=== PATIENT | female | born 1950 | race Caucasian/White ===

== ENCOUNTER 2023-01-07 07:07 | Inpatient (IN) ==
--- NOTE | 2022-12-11 12:11 | PAT Medication Instructions ---
Medication Instructions Date of Service December 11, 2022 Home Medications acetaminophen 500 mg tablet 500 mg PO Q6H PRN Pain amino acids (Amino Acid capsule) 1 cap PO UD aspirin 81 mg capsule 81 mg PO QAM calcium carbonate 600 mg-vitamin D3 5 mcg (200 unit) tablet 1 tab PO DAILY cholecalciferol (vitamin D3) 125 mcg (5,000 unit) tablet (Vitamin D3) 125 mcg PO QAM lactobacillus combination no.4 3 billion cell capsule (Probiotic) 3,000 mmu cells PO DAILY ASK your surgeon for instructions amino acids (Amino Acid capsule) 1 cap PO UD DO NOT take the morning of surgery calcium carbonate 600 mg-vitamin D3 5 mcg (200 unit) tablet 1 tab PO DAILY cholecalciferol (vitamin D3) 125 mcg (5,000 unit) tablet (Vitamin D3) 125 mcg PO QAM lactobacillus combination no.4 3 billion cell capsule (Probiotic) 3,000 mmu cells PO DAILY Take morning of surgery With a small sip of water, OTHERWISE NOTHING TO EAT OR DRINK AFTER MIDNIGHT: acetaminophen 500 mg tablet 500 mg PO Q6H PRN Pain (if needed) aspirin 81 mg capsule 81 mg PO QAM (unless surgeon directed otherwise) Take evening before surgery acetaminophen 500 mg tablet 500 mg PO Q6H PRN Pain (if needed) Other Notes If you have any questions please call us at [phone] or [phone] or [phone] or [phone]
--- NOTE | 2022-12-17 11:15 | Anesthesiology Consultation ---
Date of Service December 17, 2022 Assessment & Plan (1) Encounter for pre-operative examination: - Infectious disease screening: Per assessment on 12/17/22: No known infectious disease contacts or current infectious disease symptoms. No noted Covid positive test result in past 90 days. - Outpatient joint assessment: Pt currently scheduled for inpatient pathway. If surgeon requests review for outpatient joint pathway, patient is an acceptable candidate for outpatient joint program from anesthesia standpoint pending surgeon's office assessment that patient is motivated, has good support and completes [facility] preop requirements. Chart Review Chart Review: Acceptable Risk for Surgery and Patient seen in Pre Admission Testing Teaching & Discussion Pre-Anesthesia Teaching/Discussion Notes: Instructed NPO after midnight before surgery,except medications with 15 cc of water. Medication instructions pro vided according to the PAT guidelines. History Surgery Operation Date: 01/07/23 07:00 Proposed Procedures p Right Total Hip Arthroplasty - Placido Alicia MD Height/Weight Height: 5 ft 5.5 in Weight: 63.8 kg Allergies Allergy/AdvReac Type Severity Reaction Status Date / Time levofloxacin [From Levaquin] Allergy Unknown Left arm Verified 12/16/22 11:51 numbness Medications Home Medications Medication Instructions Recorded Confirmed Last Taken acetaminophen 500 mg tablet 500 mg PO Q6H PRN Pain 12/11/22 12/11/22 Unknown amino acids (Amino Acid capsule) 1 cap PO UD 12/11/22 12/11/22 Unknown aspirin 81 mg capsule 81 mg PO QAM 12/11/22 12/11/22 Unknown calcium carbonate 600 mg-vitamin 1 tab PO DAILY 12/11/22 12/11/22 Unknown D3 5 mcg (200 unit) tablet cholecalciferol (vitamin D3) 125 125 mcg PO QAM 12/11/22 12/11/22 Unknown mcg (5,000 unit) tablet (Vitamin D3) lactobacillus combination no.4 3 3,000 mmu cells PO DAILY 12/11/22 12/11/22 Unknown billion cell capsule (Probiotic) Past Medical History Medical History Arthritis of right hip Exercise / Class Metabolic Activity II 4-5 Yardwork/Stairs/Walk up hill (one FS (no CP, no SOB)) Past Surgical History Surgical History Hx of bilateral cataract extraction Hx of colonoscopy Past Anesthesia History No Hx of Anesthesia Complications and No Family Hx of Anesthesia Complications History of PONV No Hx of PONV and Hx of Motion Sickness (Remote hx (carnival rides)) Social History Smoking Status: Never smoker Do You Dip or Chew Tobacco: No Hx Alcohol Use: No Hx Substance Use: No substance use type: does not use Review of Systems Patient denies chest pain, shortness of breath, dyspnea on exertion, fever, chills, cough, wheezing, palpitations. Physical Exam Vital Signs VITALS BP 148/69 P 69 TEMP 98.0 SP02 98%RA RESP 18 PHYSICAL Full cervical extension range of motion. Full TMJ range of motion. TMD 3 finger breaths Mallampati Score 3 Dentition: missing (sides/molars), + crowns (sides) Lungs: clear throughout to auscultation Cardiac: regular rate and rhythm, no murmurs noted Spine: normal Carotid arteries: negative bruit Extremities: no LE edema Lab Results Anesthesia Preop Results Results Anesthesia Widget: WBC 6.15 K/ul (4.8-10.8) 12/17/22 Hgb 12.8 g/dl (12.0-16.0) 12/17/22 Hct 39.3 % (37.0-47.0) 12/17/22 Plt 232 K/uL (130-400) 12/17/22 Na 138 mmol/L (136-145) 12/17/22 K 4.5 mmol/L (3.5-5.1) 12/17/22 Cl 107 mmol/L (98-107) 12/17/22 CO2 28 mmol/L (21-32) 12/17/22 BUN 17 mg/dl (6-23) 12/17/22 Creat 0.88 mg/dl (0.6-1.2) 12/17/22 Glucose Level 98 mg/dl (70-99(Fasting)) 12/17/22 PT 11.5 Seconds (9.0-12.0) 12/17/22 PTT 26.5 Seconds (21.0-31.0) 12/17/22 INR 1.1 (0.9-1.1) 12/17/22 TSH 1.622 uIu/ml (0.300-4.500) 12/17/22 Blood Type B Positive 12/17/22 Antibody Screen NEGATIVE 12/17/22 Testing Electrocardiogram Date: 12/17/22 NSR at 66bpm. Chest X-Ray Date: 12/17/22 FINDINGS: There is mild lung hyperinflation. Lungs are clear. There is no pneumothorax or pleural effusion. Cardiac size is normal. Mediastinal contours are normal. There is no evidence for pulmonary edema. IMPRESSION: No acute cardiopulmonary findings.
--- NOTE | 2023-01-04 09:11 | History & Physical Report ---
Date of Service January 04, 2023 Assessment & Plan (1) Arthritis of right hip: 72-year-old female with advanced right hip arthritis. It looks inflammatory in nature based on the wear pattern. She has failed conservative treatment like to have her right hip fixed. We will plan on taken to the operating to a right total hip replacement. The risks Mente this procedure explained the patient include but not limited to DVT PE infection neurological and vascular bleeding palm pain limb range of motion test is fairly her symptoms incomplete relief of symptoms need for further surgery in the future dislocation etc. The patient understands and desires to proceed informed consent is obtained. We will plan on using a cry stem but is possible we may put a cemented stem in due to her bone structure. What to see what is like at the time of implantation. She is hoping to be discharged home using [facility] program. She does have a history of a DVT in the past with a negative clotting work-up. Will use Xarelto for DVT prophylaxis for 30 days. History of Present Illness Chief Complaint: . Right hip pain. Primary Care Provider: Tameka Correa . Patient is a 72-year-old female from [place] who presents primarily for surgical treatment of her right hip. She has a several year history of increasing right hip pain discomfort describes gotten worse over time. Describes lateral pain groin pain pain rating down to her thigh and into her knee but no further. She been through therapy which did not help at all. She takes Motrin which seemed to help a little bit. 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 She had a negative work- up and was taken off. She has difficulty putting her shoes and socks on. Pains become more unbearable. She like to have this fixed. Allergies Allergy/AdvReac Type Severity Reaction Status Date / Time levofloxacin [From Levaquin] Allergy Unknown Left arm Verified 12/16/22 11:51 numbness Home Medications Medication Instructions Recorded Confirmed Type acetaminophen 500 mg tablet 500 mg PO Q6H PRN Pain 12/11/22 12/11/22 History amino acids (Amino Acid capsule) 1 cap PO UD 12/11/22 12/11/22 History aspirin 81 mg capsule 81 mg PO QAM 12/11/22 12/11/22 History calcium carbonate 600 mg-vitamin 1 tab PO DAILY 12/11/22 12/11/22 History D3 5 mcg (200 unit) tablet cholecalciferol (vitamin D3) 125 125 mcg PO QAM 12/11/22 12/11/22 History mcg (5,000 unit) tablet (Vitamin D3) lactobacillus combination no.4 3 3,000 mmu cells PO DAILY 12/11/22 12/11/22 History billion cell capsule (Probiotic) Past Med/Surg History Medical History Arthritis of right hip Surgical History Hx of bilateral cataract extraction Hx of colonoscopy Social History Smoking Status: Never smoker Second Hand Exposure: Yes (hx growing up); Do You Dip or Chew Tobacco: No; Hx Alcohol Use: No Hx Substance Use: No Preferred Language: Italian Communication Ability: Effective Senior Game Developer Required: No Beliefs That Will Affect Care: None Current Living Situation: Alone Feels Safe at Home: Yes Assistive Devices: Glasses Review of Systems All systems reviewed & are unremarkable except as noted in HPI & below. Physical Exam . Gout examination of the right hip reveal patient walks with a slight bit of a limp. The leg lengths appear pretty equal. She does have tenderness over the lateral aspect of her hip. She does have pain and stiffness with hip motion. She is got limited internal rotation about neutral which recreates pain. Negative straight leg raise. No segment knee effusion. She is neurologically intact. Constitutional WD/WN, vitals as above Neck trachea midline, no thyromegaly Respiratory normal respiratory effort, lungs clear to auscultation Cardiovascular RRR, no murmur, no edema Gastrointestinal (Abdomen) normal bowel sounds, soft, nontender, no hepatosplenomegaly Results & Data Results & Data Laboratory Results . Diagnostic Findings . X-rays of the right hip were reviewed. Shows advanced right hip arthritis. She got fairly concentric disease with protrusio of the femoral head into the a cetabulum. She got cystic changes of the femoral head and acetabulum. Significant osteophytes around the femoral head as well as acetabulum. PG Care Time/CCT Total # of Minutes Spent Total Time Spent with Patient: Total time spent is greater than 50% in coordination of care (as documented) at patient's floor/unit and/or counseling patient: Coding Level of Care Code None Diagnoses Arthritis of right hip M16.11
[~2023-01-07 07:07] MED LIST: ACETAMINOPHEN 500 MG TAB PO SCH; CeleBREX 200 MG CAP PO SCH; FAMOTIDINE 20 MG TAB PO SCH; LR 500ML BOLUS, THEN 15ML/HR IV SCH; LR 60ML/HR IV SCH; METOCLOPRAMIDE HCL 10 MG TABLET PO SCH; ROPIVACAINE 0.5% 5 MG/ML 30 ML VIAL ONE; TRANEXAMIC ACID 1,000 MG **IV Pre-op IV SCH; ceFAZolin 2000MG 2,000 MG/15 ML SYR IV SCH; dexAMETHasone 4 MG TAB PO SCH
[2023-01-07] MEDS ORDERED: ORTHO JOINT ANESTHETIC ONE (07:14)
[2023-01-07] MEDS ORDERED: Nursing to Pharmacy Communication SCH (07:15)
[2023-01-07] MEDS ORDERED: BUPIVACAINE/EPINEPHRINE 0.5% MPF 1:200,000 30 ML VIAL ONE (07:20)
[2023-01-07] MEDS ORDERED: ONDANSETRON INJ 2 MG/ML 2 ML VIAL IV PRN ×2 (07:28→11:41)
[2023-01-07] MEDS ORDERED: HYDROmorphone INJ 1 MG/ML SYRINGE IV PRN (07:28)
[2023-01-07] MEDS ORDERED: ATROPINE SULFATE 0.1 MG/ML 10ML SYR IV PRN (07:28)
[2023-01-07] MEDS ORDERED: ePHEDrine sulfate 50 MG/ML AMP IV PRN (07:28)
[2023-01-07] MEDS ORDERED: fentaNYL citrate PF 100 MCG/2 ML VIAL IV PRN (07:28)
[2023-01-07] MEDS ORDERED: MIDAZOLAM HCL 1 MG/ML 2ML VIAL ONE (07:44)
[2023-01-07] MEDS ORDERED: PROPOFOL IV EMULSION 10 MG/ML 20 ML VIAL IV ONE (07:44)
[2023-01-07] MEDS ORDERED: fentaNYL citrate PF 100 MCG/2 ML VIAL ONE (07:44)
[2023-01-07] MEDS ORDERED: LIDOCAINE 2% 2 ML VIAL/AMP(20MG/ML) INFIL ONE (07:44)
--- NOTE | 2023-01-07 08:30 | History & Physical Bridge Note ---
Date of Service January 07, 2023 History & Physical Bridge Note I have examined the patient, reviewed the History & Physical and in the interval since the performance of the History & Physical I have noted the following changes of clinical significance: no changes noted
[2023-01-07] MEDS: TRANEXAMIC ACID / 0.7% NACL 1000MG/100ML BAG IV ONE ×2 (08:49→13:00)
[2023-01-07] MEDS ORDERED: ePHEDrine sulfate 50 MG/5 ML SYR ONE (09:13)
--- NOTE | 2023-01-07 10:38 | Operative Report ---
PG Post Operative Report Pre & Post Diagnosis Operation Date: 01/07/23 08:50 Pre-Op Diagnosis: Right Hip Degenerative Joint Disease Post-Op Diagnosis: Right Hip Degenerative Joint Disease I identified the patient and participated in the time-out.: Yes Procedure Operation Date: 01/07/23 08:50 Actual Procedures p Right Total Hip Arthroplasty(Right) - Placido Alicia MD Surgeon Placido Alicia MD Personnel Consultant Clint Hart PA-C Estimated Blood Loss 200 Findings Consistent with Post-Op Diagnosis Operative findings reveal advanced right hip DJD. She had extensive grade 4 [id number] disease of the femoral head and acetabulum. She had protrusio of the acetabulum. Large osteophytes around the acetabulum as well. Specimens Right femoral head sent for pathology Anesthesia Type Spinal MAC Complications none Disposition Accompanied Patient To Recovery: No Indications Patient is 72-year-old female said a several year history of increased right hip pain discomfort and stiffness. She been through extensive conservative treatment which became less successful with time. X-rays show advanced hip arthritis. She elected proceed with total hip arthroplasty. Description of Procedure Operative implants consist of: 1 Biomet G7 size 52 mm acetabular shell. 2. 6.5 cancellous acetabular screws 135 mm length 125 mm length. 3. Cohutta hole eliminator. 4. Highly cross-linked polyethylene liner with a 52 mm outer diameter and 36 mm inner diameter. 5. DePuy Karaya I 125 degree angle short neck size 12 femoral stem. 6. +1.5/36 mm ceramic articular ball. 7. 2.0 mm prophylactic Dall-Miles cable. I attest to the content of the Intraoperative Record and any orders documented therein. Any exceptions are noted below.
--- NOTE | 2023-01-07 11:09 | Anesthesiology Progress Note ---
Date of Service January 07, 2023 Anesthesia Post Procedure Vital Signs Vital Signs: Temp Pulse Pulse Resp BP Pulse Ox O2 Del Method 01/07/23 11:00 36.2 C L 77 19 124/69 99 Room Air 01/07/23 10:50 78 17 138/60 100 Nasal Cannula 01/07/23 10:40 73 16 128/71 100 Nasal Cannula 01/07/23 10:30 36.1 C L 79 16 128/74 97 Nasal Cannula 01/07/23 07:26 36.8 C 84 16 157/93 H 98 Room Air O2 Flow Rate 01/07/23 11:00 01/07/23 10:50 2 01/07/23 10:40 2 01/07/23 10:30 2 01/07/23 07:26 Transfer of Care Handoff Completed per policy Notes Mental Status: alert / awake / arousable and participated in evaluation Patient Amnestic to Procedure: Yes Nausea / Vomiting: adequately controlled Pain: adequately controlled Airway Patency, RR, SpO2: stable & adequate BP & HR: stable & adequate Hydration State: stable & adequate Anesthetic Complications: no major complications apparent and Pt Satisfied with anesthetic care
--- NOTE | 2023-01-07 11:19 | XRay Report ---
XR hip 1V RT w pelvis CLINICAL HISTORY: IN PACU - Post Surgical TECHNIQUE: 1 views of the right hip and single frontal view of the pelvis were obtained. Comparison: None available at the time of this dictation. FINDINGS: Patient is status post total hip arthroplasty with expected postsurgical changes including soft tissu e swelling and subcutaneous emphysema. IMPRESSION: Expected postoperative appearance status post placement of total hip arthroplasty. ACT 112: Negative or not required by law. Electronically signed by: Juan M Blankenship M.D. 01/07/2023 11:17 AM
[2023-01-07] MEDS ORDERED: HYDROmorphone INJ 0.5 MG/0.5 ML SYR IV PRN (11:41)
[2023-01-07] MEDS ORDERED: ONDANSETRON 4 MG OD TAB PO PRN (11:41)
[2023-01-07] MEDS ORDERED: NALOXONE HCL 0.4 MG/1 ML VIAL/CARP IV PRN (11:41)
[2023-01-07] MEDS ORDERED: MAGNESIUM HYDROXIDE SUSP 30 ML UDC PO PRN (11:41)
[2023-01-07] MEDS ORDERED: METOCLOPRAMIDE HCL INJ 5 MG/ML 2 ML VIAL IV PRN (11:41)
[2023-01-07] MEDS ORDERED: bisacodyL 10 MG SUPP PR PRN (11:41)
[2023-01-07] MEDS ORDERED: ALUMINUM/MAGNESIUM SUSP 30 ML UDC PO PRN (11:41)
[2023-01-07] MEDS ORDERED: NON-FORMULARY MEDICATION (Amino Acids [Amino Acid] Capsule) PO SCH (11:41)
[2023-01-07] MEDS: SODIUM CHLORIDE 0.9% 1,000 ML IV SCH ×2 (13:37→23:30)
[2023-01-07] MEDS: ACETAMINOPHEN 500 MG TAB PO SCH ×2 (13:38→21:05)
[2023-01-07] MEDS: KETOROLAC TROMETHAMINE 15 MG/ML VIAL IV SCH ×3 (13:38→23:32)
[2023-01-07] MEDS ORDERED: ACETAMINOPHEN 500 MG TAB PO SCH (14:00)
[2023-01-07] MEDS: traMADol HCL 50 MG TABLET PO PRN (15:27)
[2023-01-07] MEDS: General Order Problem(s) SCH ×3 (15:46→15:48)
[2023-01-07] MEDS: ceFAZolin 1000MG 1,000 MG/7.5 ML SYR IV SCH (16:26)
[2023-01-07] MEDS: ASCORBIC ACID 500 MG TAB PO SCH (16:28)
[2023-01-07] MEDS ORDERED: TRANEXAMIC ACID / 0.7% NACL 1,000 MG/100 ML BAG IV SCH (16:45)
[2023-01-07] MEDS ORDERED: SENNA 8.6 MG TAB PO SCH (21:00)
[2023-01-07] MEDS: DOCUSATE SODIUM 100 MG CAP PO SCH (21:23)
[2023-01-07] MEDS: SENNA 8.6 MG TAB PO SCH (22:00)
[2023-01-08] MEDS: ceFAZolin 1000MG 1,000 MG/7.5 ML SYR IV SCH (01:37)
[2023-01-08] MEDS: KETOROLAC TROMETHAMINE 15 MG/ML VIAL IV SCH ×2 (05:38→11:43)
[2023-01-08] MEDS ORDERED: TRANEXAMIC ACID 1,000 MG **IV Pre-op IV SCH ×2 (06:00→08:45)
[2023-01-08 06:47] LABS: Basophils # (auto) 0.03 K/uL (0.00-0.20); Basophils % (auto) 0.3 %; Eosinophils # (auto) 0.02 K/uL (0.00-0.50); Eosinophils % (auto) 0.2 %; Hemoglobin 10.5 g/dl (12.0-16.0); Immature Granulocytes # (auto) 0.02 K/uL (0.01-0.20); Immature Granulocytes % (auto) 0.2 %; Lymphocytes # (auto) 1.33 K/uL (1.20-3.40); Mean Corpuscular Hemoglobin 30.3 pg (25.0-34.0); Mean Corpuscular Hgb Conc 32.8 g/dL (32.0-36.0); Mean Corpuscular Volume 92.2 fL (80.0-100.0); Mean Platelet Volume 10.1 fL (9.4-12.4); Monocytes # (auto) 1.06 K/uL (0.11-0.59); Monocytes % (auto) 11.2 %; Neutrophils # (auto) 7.04 K/uL (1.40-6.50); Neutrophils % (auto) 74.1 %; Platelet Count 201 K/uL (130-400); RDW Coefficient of Variation 13.8 % (11.5-14.5); RDW Standard Deviation 46.5 fL (36.4-46.3); Red Blood Count 3.47 M/uL (4.20-5.40)
[2023-01-08 06:58] LABS: BUN Creatinine Ratio 18.2 (10-20); Calcium 8.9 mg/dl (8.6-10.3); Creatinine Clr Calc Pharmacy 45.8 ml/min; Est GFR (African American) 65.1 ml/min; Est GFR (Non-African American) 56.1 ml/min; Potassium 4.7 mmol/L (3.5-5.1)
[2023-01-08] MEDS ORDERED: dexAMETHasone 10 MG in SYRINGE 0 ML IV SCH (08:00)
[2023-01-08] MEDS: DOCUSATE SODIUM 100 MG CAP PO SCH (08:12)
[2023-01-08] MEDS: ACETAMINOPHEN 500 MG TAB PO SCH ×2 (08:12→14:15)
[2023-01-08] MEDS: SENNA 8.6 MG TAB PO SCH (08:13)
[2023-01-08] MEDS: ASCORBIC ACID 500 MG TAB PO SCH (08:15)
[2023-01-08] MEDS ORDERED: ADVANCED PROBIOTIC 1250 MG CAPSULE PO SCH ×2 (09:00→11:30)
[2023-01-08] MEDS ORDERED: CHOLECALCIFEROL 5,000 UNITS 125 MCG TAB PO SCH (09:00)
[2023-01-08] MEDS: traMADol HCL 50 MG TABLET PO PRN (09:00)
[2023-01-08] MEDS ORDERED: CALCIUM 600MG + VIT D 400 IU TAB PO SCH (09:00)
[2023-01-08] MEDS ORDERED: MULTIVITAMIN TAB PO SCH (09:00)
[2023-01-08] MEDS ORDERED: ASPIRIN 81 MG ECTAB PO SCH (09:00)
[2023-01-08] MEDS ORDERED: RIVAROXABAN 10 MG TABLET PO SCH (11:00)
--- NOTE | 2023-01-08 14:29 | Surgery Progress Note ---
Date of Service January 08, 2023 Assessment & Plan (1) Status post right hip replacement: Plan: 72-year-old female postop day 1 from right hip replacement doing pretty well. Pain is controlled. Hips located. She is neurologically intact. Plan: 1. DVT prophylaxis including thigh-high teds, SCDs, Xarelto for 1 month. 2. PT OT. Weight-bear as tolerated right total hip protocol. 3. Pain control doing okay with current pain regimen. 4. Disposition plan to discharge to rehab today. Admission and Anticipated Discharge Date Admission Date: January 08, 2023 Subjective 72-year-old female postop day 1 from a right total hip replacement. She is doing much better this afternoon. Pain is controlled. She has been up and walk around some. She decided she [facility] rehab instead of a [facility] facility. Denies any chest pain or shortness of breath. Physical Exam Physical Exam: Physical relation was a pleasant elderly female. She is walking around her room I visited her this afternoon. Examination of the right hip reveals the dressing be clean dry and intact. Leg lengths are equal. Thigh is soft and supple. She is neurologically intact. Respiratory: normal respiratory effort, lungs clear to auscultation Cardiovascular: RRR, no murmur, no edema Gastrointestinal (Abdomen): normal bowel sounds, soft, nontender, no hepatosplenomegaly Results & Data Vital Signs (Past 12 Hours) Vital Signs Temp Pulse Pulse Resp BP BP Pulse Ox 01/08/23 10:57 36.7 C 71 16 128/74 98 01/08/23 07:34 36.6 C 74 16 144/77 H 99 01/08/23 03:00 36.9 C 77 18 133/76 96 O2 Del Method 01/08/23 10:57 Room Air 01/08/23 07:34 Room Air 01/08/23 03:00 Room Air Laboratory Results Hemoglobin 10.5. Hematocrit 32.5. Electrolytes are stable. PG Care Time/CCT Total # of Minutes Spent Total Time Spent with Patient: Total time spent is greater than 50% in coordination of care (as documented) at patient's floor/unit and/or counseling patient: Coding Level of Care Code 17778 Post Operative Follow-Up Diagnoses Status post right hip replacement Z96.641
--- NOTE | 2023-01-08 17:01 | Operative Report ---
PG Post Operative Report Pre & Post Diagnosis Operation Date: 01/07/23 08:50 Pre-Op Diagnosis: Right Hip Degenerative Joint Disease Post-Op Diagnosis: Right Hip Degenerative Joint Disease I identified the patient and participated in the time-out.: Yes Procedure Operation Date: 01/07/23 08:50 Actual Procedures p Right Total Hip Arthroplasty(Right) - Placido Alicia MD Surgeon Placido Alicia MD Ballistics Teacher Clint Hart PA-C Estimated Blood Loss 200 Findings Consistent with Post-Op Diagnosis Specimens Femoral head sent for pathology. Anesthesia Type Spinal MAC Complications none Disposition Accompanied Patient To Recovery: No Indications Patient 72-year-old female with history of year history of progressively gradually increasing right hip pain discomfort. She failed conservative measures. Pains become more unbearable and limiting her activities. She elected proceed with total hip arthroplasty. Description of Procedure Operative implants consist of: 1 Biomet G7 size 52 mm acetabular shell. 2. 6.5 cancellous acetabular screws 1 at 35 mm in length and 125 mm length. 3. Alexis eliminator. 4. Highly cross-linked polyethylene liner with a 52 mm outer diameter 36 mm inner diameter. 5. DePuy UGAMEaya size 12 short neck 125 degree angle femoral stem 6. +1.5/36 mm ceramic articular ball. 7. Dami-Jas 2.0 mm prophylactic cable. The patient was taken to the operating, identified, and placed on the operating table supine position. All contractors were appropriately padded. IV antibiotics tried by anesthesia team. A spinal anesthetic and been implemented holding area. Wyatt catheter was placed in sterile fashion. The patient then placed in the left lateral decubitus position. The wound was placed. Stulberg hip positioner was used for positioning. The right hip and leg were then prepped and draped in usual sterile fashion. A posterolateral approach to the right hip was then performed through a curvilinear incision centered over the greater trochanter. Sharp dissection carried through subcutaneous tissue down to level the IT band gluteal fascia. The IT band and gluteal fascia incised longitudinally in line with skin incision. The underlying greater bursa was excised. The piriformis and external rotators along with the posterior hip joint capsule were then released from the posterior aspect of the hip as a single layer. Hip was internally rot ated and dislocated. Femoral neck osteotomy cut was made and the femoral head was removed and sent for pathology. The femur was retracted anteriorly. Attention drawn the acetabulum. The acetabular labrum was excised. The pulmonary fat was excised. Sequential reaming the acetabular was then performed again with a size 45 reamer and progressing up to a 51. I reamed a little bit with a 52 reamer and then placed a 52 mm Biomet G7 acetabular shell in about 40 degrees lateral opening and 20 degrees of anteversion. It was fixed with two 6.5 cancellous acetabular screws. A trial liner was placed. Attention drawn the femur. The proximal femur was entered with cookie-cutter followed by canal finder. I then broached beginning with a size 8 and I progressed up to a size that 11 broach. We then trialed the hip. With this broach in place the hip was stable but there is still little bit rotation of the femoral component. Therefore elected to place a larger implant. In order to do this I did. Placed a prophylactic Dall-Miles cable around the proximal femur as was concerned about possibly stress in the upper part of the femur and creating a crack. Dall-Miles cable was placed. I then broached the femur and was able to fit the 12 stem down. We tried different neck lengths and the short neck was most appropriately. Soft tissue tension was too high with the standard neck. The hip was fully stable with a +1.5 head. We elected to place his implants. All trial implants were removed. Alexis hole limiter was placed. Highly cross- linked polyethylene liner was placed. A size 12 femoral stem was impacted in position. This was a short neck on 25 degree angle stem. A +1.5/36 mm ceramic articular ball was placed. Hip was located and once again found to be stable. Attention drawn to closing. The wound was irrigated closed mildly pulsatile lavage solution. The posterior hip joint capsule and the rotators were reattached to the posterior aspect the hip with #2 Tycron suture through drill holes. The IT band gluteal fascia then closed 1 PDS suture running fashion. The subcutaneous tissues then closed with 2 layers with a deep layer #1 Vicryl suture subcutaneous tissue with 2 Dexon suture in buried interrupted fashion. Skin was closed skin elena. Leg was then cleaned and dried and sterile dressed with Xeroform, 4 fours, ABD pad and foam tape was applied. Patient then transferred to the recovery room in stable condition. Patient tolerated procedure well and there are no complications. Clint Hart, my physician junior sales assistant, was present for the entire procedure. His assistance was essential and required for appropriate patient positioning, prepping and draping, surgical exposure, performing the technical details of the operation, placement the implants, closure of the wound, and placement of the sterile bandage. I attest to the content of the Intraoperative Record and any orders documented therein. Any exceptions are noted below.
--- NOTE | 2023-01-10 09:27 | Discharge Summary ---
Date of Service January 10, 2023 Discharge Data Procedures Performed Operation Date: 01/07/23 08:50 Actual Procedures p Right Total Hip Arthroplasty(Right) - Placido Alicia MD Hospital Course (1) Status post right hip replacement: This is a 72 year old patient admitted on 01/07/23 and underwent total hip arthroplasty. She tolerated the procedure well and there were no complications. Transferred to the PACU post op and later to the orthopedic floor for further care. She was given ancef for antibiotic prophylaxis. She was also given RICHARD stockings, SCDs, and xarelto for DVT prophylaxis. Hemoglobin, hematocrit, and vital signs were monitored during her hospital stay and remained stable. Did not require any blood transfusions. There were no complications during her hospital stay. By post op day #1 the patient was tolerating a regular diet, pain was reasonably controlled with oral pain medicine, and she was participating in physical therapy. On post op day #1 the patient was discharged to a rehab facility. She was given printed discharge instructions including prescriptions for extra strength tylenol, zofran, xarelto, senokot, and tramadol. Continue hip precautions. Continue physical therapy, weight bearing as tolerated. Continue RICHARD stockings. Follow up approximately 2 weeks post op or sooner if there are problems or concerns. Coding Level of Care Code None Diagnoses Status post right hip replacement Z96.641
== END 2023-01-08 15:21 | DRG 470 ==
LOC: ASU 07:07 → PACUINP 07:07 → OBSVTOIN 10:37 → 3E 12:50